=== PATIENT | male | born 1960 | race Caucasian/White ===

== ENCOUNTER 2016-08-02 14:15 | Emergency (ER) | payer OTHER ==
[~2016-08-02] VITALS: Ht 182.9 cm; Wt 165.0 kg
[2016-08-02 14:30] VITALS: BP 141/83; PULSE 101; RESP 15; O2SAT 98
[2016-08-02 15:36] LABS: BASOPHILS % (AUTO) 0.2 % (0-3); EOSINOPHILS % (AUTO) 0 % (0-5); MONOCYTES % (AUTO) 4.8 % (4-12); Mean Corpuscular Hemoglobin 30.7 pg (27.0-35.0); Mean Corpuscular Volume 88.4 fL (81-100); NEUTROPHILS % (AUTO) 80.3 % (40-74); Platelet Count 264 bil/L (150-400)
[2016-08-02 16:00] LABS: Magnesium 1.9 mg/dL (1.6-2.6)
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
[2016-08-02 16:47] LABS: APPEARANCE,URINE CLEAR (CLEAR,HAZY); COLOR,URINE DARK YELLOW (YELLOW); OCCULT BLOOD,URINE NEGATIVE (NEGATIVE); UROBILINOGEN,URINE NORMAL (NORMAL)
[2016-08-02] MEDS ORDERED: Ondansetron 2 mg/mL 2 mL Inj ONE (16:51)
[2016-08-02] MEDS ORDERED: Ondansetron 2 mg/mL 2 mL Inj IVPUSH ONE ×2 (17:05)
[2016-08-02] MEDS ORDERED: HYDROmorphone 0.5 mg/0.5 mL iSecure Syringe IVPUSH ONE ×2 (18:10→20:00)
[2016-08-02] MEDS ORDERED: Promethazine Inj 12.5 MG in Dextrose 5%-Pha MIX 50 ML IV ONE (18:10)
--- NOTE | 2016-08-02 18:13 | DRSVH ---
PROCEDURE: CT ABDOMEN AND PELVIS WITH CONTRAST (PNL-7102) INDICATIONS: 56 year-old male with left lower quadrant abdominal pain. TECHNIQUE: After the administration of intravenous contrast, 5 mm thick sections acquired from the diaphragm to the symphysis. 5 mm coronal and sagittal reformats were acquired. For radiation dose reduction, the following was used: automated exposure control, adjustment of mA and/or kV according to patient siz e. COMPARISON: None. FINDINGS: Image quality: Metallic streak artifact from lower lumbar spine fixation hardware obscures adjacent b harsha and soft tissue structures. ABDOMEN: Lung bases: Lung bases are clear. Heart size is normal. There is small retrocardiac hiatal hernia. Solid organs: Liver and spleen are normal in size and enhancement. Gallbladder wall thickness is no rmal. Biliary system is non dilated. Pancreas enhances normally. No adrenal nodules. Kidneys demo nstrate normal size and enhancement, without hydronephrosis. 3 mm inferior nonobstructing right renal stone is present. Peritoneum and bowel: Bowel loops demonstrate normal wall thickness and caliber. There is mild desc ending and sigmoid colon diverticulosis, without acute diverticulitis. The appendix appears normal. N o free fluid or air. Nodes and vessels: No retroperitoneal or mesenteric adenopathy by size criteria. Aorta and inferior vena cava are normal in size, with scant aortic atherosclerosis. Miscellaneous: No ventral hernias. PELVIS: Genitourinary: Bladder wall thickness is normal. Prostate gland is normal in size. Miscellaneous: Small fat-containing right inguinal hernia is present. No inguinal adenopathy by CT si ze criteria. Bones: No suspicious bony lesions. No vertebral body compression fractures. Patient is status post L4-L5 discectomy with interbody fusion and bilateral posterior fixation. There is scattered upper an d mid lumbar spine disc degeneration. IMPRESSION: 1. Mild descending and sigmoid colon diverticulosis, without acute diverticulitis. 2. 3 mm inferior nonobstructing right renal stone. 3. Small fat-containing right inguinal hernia. Dictated by: Omar Elaine M.D. on 08/02/2016 at 18:06 Approved by: Omar Elaine M.D. on 08/02/2016 at 18:12
[2016-08-02] MEDS ORDERED: HYDR-4003 PO (19:05)
[2016-08-02] MEDS ORDERED: PROM25TA14 PO (19:05)
[2016-08-02] MEDS ORDERED: Alum-Mag Hydrox-Simeth 30 mL Suspension PO ONE (19:45)
[2016-08-02 20:22] VITALS: BP 114/75; PULSE 72; RESP 16; O2SAT 100
== END 2016-08-02 20:15 | disposition home or self-care (01) ==
LOC: SED 14:15
DX: R10.84 Generalized abdominal pain (principal); E86.0 Dehydration; R63.1 Polydipsia; K92.1 Melena; R50.9 Fever, unspecified; R39.12 Poor urinary stream; Z98.890 Other specified postprocedural states
CPT/HCPCS: 36415; 51798; 74177; 80053; 81000; 82948; 83036; 83690; 83735; 85025; 96374; 96375; 96376; 99285; J1170; J2405; J2550; Q9967

== ENCOUNTER 2016-08-07 15:37 | Inpatient (IN) | payer OTHER ==
[~2016-08-07] VITALS: Ht 182.9 cm; Wt 75.0 kg
[2016-08-07] MEDS: Pantoprazole 4 mg/mL 10 mL Inj IVPUSH SCH ×2 (08:30→20:30)
[~2016-08-07 15:37] MED LIST: HYDR-4003 PO; PROM25TA14 PO
[2016-08-07 15:52] VITALS: BP 178/108; PULSE 93; RESP 16; O2SAT 100
[2016-08-07] MEDS ORDERED: 0.9% Sodium Chloride 1,000 ML IV ONE (16:02)
--- NOTE | 2016-08-07 16:03 | ED.REPORT ---
HPI-Abd Pain M 40 and Over Date of Service Aug 07, 2016 ED Provider: Gael Hawley MD Pt is a 56 y/o male presenting to the ED c/o severe squeezing epigastric abdominal pain onset prior to arrival. The patient was seen here approximately 5 days ago complaining of multiple episodes of emesis, diarrhea, and severe abdominal pain. An extensive workup during that visit including CT scan was performed, which was unremarkable. He was treated with Phenergan and Dilaudid with relief of symptoms. The patient went to a follow-up appointment today with an internal medicine doctor and was prescribed something (he doesn't remember what, he hasn't been able to fill it). He went home and his pain returned and he called EMS. He c/o associated nausea and vomiting. Pt denies fever, chills, SOB, CP. He has been experiencing this pain intermittently for 3 years. He has no formal diagnosis but it was thought that he may have an ulcer. He was referred to GI but hasn't had an appointment yet. Pt denies alcohol use, NSAID use, anticoagulation. Nursing Notes Stated Complaint: ABDOMINAL PAIN Chief Complaint: Male Abdominal Pain Nursing Notes Reviewed: Yes Allergies: Coded Allergies: No Known Allergies (Unverified , 08/02/16) Scheduled Pantoprazole DR (Pantoprazole DR) 40 Mg Tablet.dr 40 MG PO DAILY Sucralfate (Sucralfate) 1 Gm Tablet 1 GM PO QID Scheduled PRN Promethazine (Promethazine) 25 Mg Tablet 25 MG PO Q6H PRN PRN For Nausea General Time Seen by MD: 15:53 Chief Complaint Abdominal pain Hx Obtained From: Patient Arrived By: Walk-in Sudden in Onset?: Yes Onset Occurred: 1 - 4 hours ago Symptom Duration: Since onset Progression since Onset: Constant Location: : Abdomen lower Quality: Painful Radiation: : Does not radiate Severity: Current: Severe Severity: Maximum: Severe Similar Sx Previous: Yes Past Medical History Past Medical History denies Past Surgical History rotator cuff surgery (06/12/16) Reports: Back/neck surgery Smoking History Unknown if Ever Smoker Social History Other Social History: Local resident Ambulatory Status Independent Review of Systems Constitutional: Denies: Chills, Fever Respiratory: Denies: Non-productive cough, Shortness of breath Cardiovascular: Denies: Chest pain GI: Reports: Abdominal pain, Nausea, Vomiting Complete sys rev & neg: except as marked. Physical Exam Initial Vital Signs Vital Signs (First) Date Time Temp Pulse Resp B/P Pulse Ox O2 Delivery O2 Flow Rate FiO2 08/07/16 15:52 36.5 93 16 178/108 100 Room Air Initial VS: Reviewed, Vital signs abnormal Head / Eyes: Atraumatic, Normocephalic, PERRL ENT: Mucous membranes moist, Conjunctiva normal, No scleral icterus Neck: Supple, Full range of motion Extremities: Vascular intact, Neuro intact, No swelling, No tenderness Skin: Warm, Dry, No cyanosis Neurologic: Alert, Oriented, Nonfocal Psychiatric: Mood/affect normal, Behavior normal, Normal thought content General/Constitutional: Awake, Alert, Cooperative, Not toxic appearing Distress / Hydration: Positive: Distress mild Appearance / Presentation: Positive: Uncomfortable Respiratory / Chest: Atraumatic, Breath sounds NL, Breath sounds = bilat, No respiratory distress, No rales, No rhonchi, No wheezing, No retractions, No stridor, No chest tenderness, No chest wall deformity, No crepitus Cardiovascular: Heart rate NL, Regular rhythm, Heart sounds NL, No gallop, No murmurs, No rubs, Cap refill not delayed, Peripheral circulation NL Abdomen: Atraumatic, Soft, No guarding, No rebound, No distention Diffuse tenderness, most notable in epigastrium Back: Full range of motion, Painless range of motion, No CVA tenderness Interpretation & Diagnostics Lab Results Interpretation Result Diagram: 08/07/16 1615 08/07/16 1615 Test 08/07/16 16:15 White Blood Count 17.6th/mm3 (3.8-10.1) Red Blood Count 5.70mil/mm3 (4.40-5.80) Hemoglobin 17.6g/dL (13.8-17.2) Hematocrit 50.3% (41.0-50.0) Mean Corpuscular Volume 88.2fL (81-100) Mean Corpuscular Hemoglobin 30.9pg (27.0-35.0) Mean Corpuscular Hemoglobin Concent 35.0% (32.0-37.0) Red Cell Distribution Width 14.2% (12.3-15.4) Platelet Count 315bil/L (150-400) Neutrophils (%) (Auto) 76.7% (40-74) Lymphocytes (%) (Auto) 14.7% (14-46) Monocytes (%) (Auto) 7.1% (4-12) Eosinophils (%) (Auto) 0.6% (0-5) Basophils (%) (Auto) 0.4% (0-3) Prothrombin Time 10.9sec (8.1-12.5) Prothromb Time International Ratio 1.02ratio Sodium Level 139mEq/L (134-144) Potassium Level 3.5mEq/L (3.5-5.2) Chloride Level 102mEq/L (97-108) Carbon Dioxide Level 16mmol/L (18-29) Blood Urea Nitrogen 16mg/dL (6-24) Creatinine 0.90mg/dL (0.76-1.27) Estimat Glomerular Filtration Rate 93mL/min (>59) Glucose Level 139mg/dL (60-99) Calcium Level 9.5mg/dL (8.5-10.1) Magnesium Level 1.8mg/dL (1.6-2.6) Total Bilirubin 1.1mg/dL (0.0-1.2) Aspartate Amino Transf (AST/SGOT) 24U/L (0-50) Alanine Aminotransferase (ALT/SGPT) 22U/L (0-44) Alkaline Phosphatase 77U/L (25-150) Total Protein 7.4g/dL (6.4-8.4) Albumin 4.6g/dL (3.4-5.0) Lipase 30U/L (13-60) Hold [place] Top Tube Received (Received) CT Abd / Pelvis Interpretation IMPRESSION: 1. Mildly distended fluid-filled small bowel loops as described above, possibly indicating gastroenteritis. 2. Normal appendix. 3. Small hiatal hernia. 4. No change in nonobstructing right inferior pole renal calculus. Dictated by: Bennett Merrill M.D. on 08/07/2016 at 18:04 Approved by: Bennett Merrill M.D. on 08/07/2016 at 18:07 Study type: Abdominal CT IV contrast Interpretation / Wet Read by: Interpret - Radiologist Re-Eval/Medical Decision Med Decision/Clinical Course Patient is a 56-year-old male in generally good health who presents with worsening/severe epigastric abdominal pain now associated with hematemesis. Patient had multiple episodes of [id number] emesis here in emergency department which was Hemoccult positive. Upon arrival the patient had significant tenderness about the epigastrium though was otherwise afebrile with stable vital signs that he was quite hypertensive. Meds given: IV fluids, IV pantoprazole, 8 mg IV Zofran Labs notable as below: CBC: Leukocytosis of 17.6 up from prior of 13.4 on 08/02/16. HCT of 50.3 not significantly changed from prior. CMP: Unremarkable, LFTs and lipase within normal limits. Coag studies normal Despite treatment with a GI cocktail and IV pantoprazole the patient reported ongoing severe abdominal pain. For this reason he was treated with IV Dilaudid and I obtained a CT scan of his abdomen did not demonstrate any acute surgical process or evidence of perforated ulcer. See above. Patient discussed with gastroenterology who felt that he could either be admitted or followed closely on an outpatient basis for upper endoscopy. Given the severity of the patient's symptoms after discussing this with him he did not feel comfortable going home and requested that he be admitted for more urgent endoscopy. Patient is discussed with admitting hospitalist transferred in stable condition. He will be seen by gastroenterology tomorrow with plan for endoscopy. Time of Eval: 18:32 Re-Evaluation/Progress Note: Pt rechecked. Continuous to experience abdominal pain. He does not feel comfortable being discharged. Pt understands and agrees with plan for admission. All questions addressed. Consultation #1: Call Returned at: 18:32 Hospitality Aide: Agrees with eval, Agrees with plan Note: Consulted GI. Appropriate for him to f/u with GI and get scoped as outpatient. If he is too uncomfortable he could be admitted Consultation #2: Consulted With: Hospitalist Call Returned at: 18:48 Hospitality Aide: Will see patient, Agrees with eval, Agrees with plan, Accepts admit Counseled Regarding: Diagnosis, Lab results, Need for admission Discharge & Departure Primary Impression: PUD (peptic ulcer disease) Additional Impressions: Hematemesis Nausea presence: with nausea Qualified Code: K92.0 - Hematemesis Leukocytosis Leukocytosis type: unspecified Qualified Code: D72.829 - Elevated white blood cell count, unspecified Upper GI bleed Sudden onset of severe abdominal pain Disposition: ADMITTED TO HOSPITAL Vital Signs - All Vital Signs Date Time Temp Pulse Resp B/P Pulse Ox O2 Delivery O2 Flow Rate FiO2 08/07/16 17:28 36.8 18 180/95 98 Room Air 08/07/16 15:52 36.5 93 16 178/108 100 Room Air )( All Prior VS Reviewed: Yes Condition: Stable Referrals: Adelaide Zuluaga MD Crit Care Except Billable Proc Time Spent: 75-104 minutes Services Performed: Patient management by me, Time spent at bedside, Reviewing test results, Reviewing imaging, Discussing patient care, Documentation in record Scribe Attestation Portions of this note were transcribed by Mamadou Jones. I, Dr. Hawley personally performed the history, physical exam and medical decision-making; I reviewed and confirmed the accuracy of the information in the transcribed note. Signed by Felipe Londono, 08/07/16 - 1700 Gael Hawley MD Aug 07, 2016 16:03 MAMADOU JONES Aug 07, 2016 16:06
[2016-08-07] MEDS ORDERED: Pantoprazole 4 mg/mL 10 mL Inj IVPUSH ONE (16:05)
[2016-08-07] MEDS ORDERED: Ondansetron 2 mg/mL 2 mL Inj IVPUSH ONE (16:05)
[2016-08-07 16:31] LABS: BASOPHILS % (AUTO) 0.4 % (0-3); EOSINOPHILS % (AUTO) 0.6 % (0-5); MONOCYTES % (AUTO) 7.1 % (4-12); Mean Corpuscular Hemoglobin 30.9 pg (27.0-35.0); Mean Corpuscular Volume 88.2 fL (81-100); NEUTROPHILS % (AUTO) 76.7 % (40-74); Platelet Count 315 bil/L (150-400)
[2016-08-07 16:42] LABS: INR 1.02 ratio
[2016-08-07 16:47] LABS: Magnesium 1.8 mg/dL (1.6-2.6)
[2016-08-07 17:28] VITALS: BP 180/95; RESP 18; O2SAT 98
[2016-08-07] MEDS: HYDROmorphone 0.5 mg/0.5 mL iSecure Syringe IVPUSH PRN ×2 (17:51→18:53)
--- NOTE | 2016-08-07 18:08 | DRSVH ---
PROCEDURE: CT ABDOMEN AND PELVIS WITH CONTRAST (PNL-7102) INDICATIONS: severe abd pain, epigastric TECHNIQUE: After the administration of intravenous contrast, 5 mm thick sections acquired from the diaphragm to the symphysis. 5 mm coronal and sagittal reformats were acquired. For radiation dose reduction, the following was used: automated exposure control, adjustment of mA and/or kV according to patient yevgeniy diggs. COMPARISON: [facility], CT, CT ABD PELVIS W CON, 08/02/2016, 17:17. FINDINGS: Image quality: Excellent. ABDOMEN: Lung bases: Lung bases are clear. Heart size is normal. Solid organs: Liver and spleen are normal in size and enhancement. Gallbladder is within normal gabriel its. Biliary system is non dilated. Pancreas enhances normally. No adrenal nodules. Kidneys demon strate normal size and enhancement, without hydronephrosis. No change in 3 mm diameter nonobstructing calculus within the inferior pole right kidney. Peritoneum and bowel: No change in small hiatal hernia. There are a few mildly distended fluid-fille d small bowel loops within the low anterior abdomen and right lower quadrant. Bowel loops demonstrate otherwise normal wall thickness and caliber. No free fluid or air. Normal appendix. Diverticulosis of the descending and sigmoid colon. No evidence of acute diverticulitis. Nodes and vessels: No retroperitoneal or mesenteric adenopathy by size criteria. Aorta and inferior vena cava are normal in size. Miscellaneous: No ventral hernias. PELVIS: Genitourinary: Bladder wall thickness is normal. Miscellaneous: No inguinal hernias or adenopathy. Bones: No suspicious bony lesions. No vertebral body compression fractures. IMPRESSION: 1. Mildly distended fluid-filled small bowel loops as described above, possibly indicating gastroente ritis. 2. Normal appendix. 3. Small hiatal hernia. 4. No change in nonobstructing right inferior pole renal calculus. Dictated by: Bennett Merrill M.D. on 08/07/2016 at 18:04 Approved by: Bennett Merrill M.D. on 08/07/2016 at 18:07
[2016-08-07] MEDS ORDERED: Ondansetron 2 mg/mL 2 mL Inj IVPUSH PRN (18:35)
[2016-08-07] MEDS ORDERED: Alum-Mag Hydrox-Simeth 30 mL Suspension PO PRN (18:35)
[2016-08-07] MEDS ORDERED: PANT40TA3 PO (18:55)
[2016-08-07] MEDS ORDERED: SUCR1TAB PO (18:55)
--- NOTE | 2016-08-07 19:47 | PCM.HPMED ---
Subjective Date of Service Aug 07, 2016 Primary Provider: Admitting Physician: Primary Care Physician: Semaj Attending Physician: Chief Complaint: abdominal pain, , Nausea, vomiting History of Present Illness: This is a 56 y/o male with no significant past medical history presenting to the ED c/o lower abdominal has been going on for approximately 5 days. She is "abdominal stabbing like , associated with multiple episodes of emesis and diarrhea. Emesis is gastric content mostly, no dorian blood but some coffee ground . He was seen in the ER recently, and an extensive workup during that visit including CT scan was unremarkable. He was treated with Phenergan and Dilaudid with relief of symptoms. He was seen as outpatient with primary care doctor and was prescribed some medication , which the patient is unable to remember the name . He went home and his pain returned and he called EMS. Pt denies fever, chills, SOB, CP. Patient stated he has been having this pain off and on over the past 3 years. He was at some point to custom framing specialist but did not follow-up with the recommendation. Today in the emergency room patient is dehydrated, unable to tolerate oral intake. GI was consulted and recommended to keep patient nothing by mouth possible endoscopy tomorrow Review of Systems: a comprehensive review x 10 points is negative except for abdominal pain nausea and vomiting as described above in HPI Allergies Coded Allergies: No Known Allergies (Unverified , 08/02/16) Home Medications Hydrocodone-Acetaminophen 5-325 mg (Hydrocodone-Acetaminophen 5-325 mg) 1 Each Tablet 1-2 TABLET PO Q4-6H PRN PRN For Pain Promethazine (Promethazine) 25 Mg Tablet 25 MG PO Q6H PRN PRN For Nausea PMH Cervical radiculopathy Surgical History Back/neck surgery Family History Family history reviewed and is noncontributory to the present illness Social History Hx Alcohol Use: Yes ("social") Hx Substance Use: No (denies) Smoking Status: Unknown if Ever Smoker Exam Vital Signs Vital Sign - Last Date Time Temp Pulse Resp B/P Pulse Ox O2 Delivery O2 Flow Rate FiO2 08/07/16 17:28 36.8 18 180/95 98 Room Air 08/07/16 15:52 93 Exam General: Well-nourished male in bed comfortably. Very anxious. NAD HHENT : GEOFFREY. Normocephalic, sclerae anicteric. Mouth: No thrush, moist oral mucosa Neck: : Trachea is midline, no cervical lymphadenopathy, no JVD. Chest: Normal respiratory effort: No chest wall tenderness, no deformity Lungs : Clear bilaterally, although, no wheezing. Heart: S1S2, regular rate and rhythm, no gallop, no murmur Abdomen: Tender at epigastric area on deep palpation. No palpable mass, non distended extremities : No cyanosis, no edema, no calf tenderness Neuro : Grossly intact. Pych : Anxious Skin : no rash, no ulcers Lab and Diagnostics Result Diagram: 08/07/16 1615 08/07/16 1615 X-Rays, CTs and MRIs Abdominal CT scan reviewed: 1. Mildly distended fluid-filled small bowel loops as described above, possibly indicating gastroenteritis. 2. Normal appendix. 3. Small hiatal hernia. 4. No change in nonobstructing right inferior pole renal calculus. Assessment & Plan 1. Acute GI bleed 2. Dehydration 3. Abdominal pain NPO. Start PPI : Pantoprazole 40 gm IV BID IV Hydration : NS @ 100 ml/hr CBC in am . GI for posible Endoscopy in am . SCD for DVT prophylaxis . Morphine sulfate 2 mg IV Q4H PRN for pain Pain Evaluation: Adequate Pain Control GI Prophylaxis: Proton Pump Inhibitor VTE Prophylaxis: SCDs Resuscitation Status: CPR: Attempt Resuscitation Time spent 55 minutes Fabien Doran MD Aug 07, 2016 19:47
[2016-08-07 20:10] VITALS: BP 172/84; PULSE 82; RESP 16; O2SAT 98
--- NOTE | 2016-08-07 20:15 | NUR ---
Admit Patient arrived from ED at 2000. Patient A&Ox3. Up independent. Vitals stable. IV in left forearm saline locked. Patient complains of abdominal pain 01/09.
[2016-08-07 20:32] VITALS: BP 187/101; PULSE 83; RESP 20; O2SAT 98
[2016-08-07] MEDS ORDERED: hydrALAZINE 20 mg/mL Inj IV PRN (22:05)
[2016-08-07] MEDS ORDERED: levoFLOXacin Inj 750 MG in IV Premix 1 EACH IV SCH (22:10)
[2016-08-07] MEDS: 0.9% Sodium Chloride 1,000 ML IV SCH (23:01)
[2016-08-07 23:58] VITALS: BP 165/87; PULSE 85; RESP 18; O2SAT 96
[2016-08-08] VITALS (7 sets, daily range): BP systolic 93–153; BP diastolic 63–92; PULSE 61–85; RESP 14–18; O2SAT 96–100
[2016-08-08] MEDS: Pantoprazole 4 mg/mL 10 mL Inj IVPUSH SCH ×2 (00:26→08:09)
[2016-08-08] MEDS: 0.9% Sodium Chloride 1,000 ML IV SCH ×3 (05:31→15:31)
[2016-08-08 06:12] LABS: BASOPHILS % (AUTO) 0.4 % (0-3); EOSINOPHILS % (AUTO) 0.8 % (0-5); MONOCYTES % (AUTO) 9.7 % (4-12); Mean Corpuscular Hemoglobin 31.1 pg (27.0-35.0); Mean Corpuscular Volume 89.8 fL (81-100); NEUTROPHILS % (AUTO) 64.9 % (40-74); Platelet Count 246 bil/L (150-400)
--- NOTE | 2016-08-08 07:34 | NUR ---
NPO Patient NPO since midnight. Morphine 2mg for pain 01/09. Patient up independent to bathroom.
--- NOTE | 2016-08-08 08:04 | NUR ---
NUTRITION ASSESSMENT: ASSESS: 56YO M admit with abdominal pain, n/v, reports abdominal pain x 3 yrs, notes indicate possible gastroenteritis, GI bleed, dehydration, pt to possibly undergo endoscopy. PMHX: Reviewed. DIET: NPO LABS: Alb 3.9 MEDS: Reviewed GI: No BM WEIGHT: 75.0kg BMI: 22.4 EST.NEEDS: 5748-5523 kcal, 75-90g pro (25-30kcal/kg;1.0-1.2g/kg pro) NUTRITION DIAGNOSIS: (1) Altered GI tract function related to alteration in GI tract function as evidenced by N/V, persistent abdominal pain and possible gastroenteritis. INTERVENTION: (1) Monitor for diet advancement, adding supplements and modifying diet as appropriate. MONITOR/EVALUATE: Diet advancement, GI status. F/U per moderate risk.
[2016-08-08] MEDS ORDERED: fentaNYL-PF 50 mCg/mL 2 mL Inj IVPUSH PRN (10:05)
--- NOTE | 2016-08-08 10:15 | NUR ---
TO [facility] Report given to [facility]. NPO since admit. Patient was transported to [facility] via a wheelchair.
--- NOTE | 2016-08-08 10:29 | PCM.CHPMED ---
Subjective Date of Service: Aug 08, 2016 Provider requesting consult: Fabien Doran MD Primary Physician: Admitting Physician: Fabien Doran MD Primary Care Physician: Nopeloise Attending Physician: Fabien Doran MD Chief Complaint: Chief Complaint: REASON FOR GI CONSULT: Abdominal pain, hematemesis History of Present Illness: GASTROENTEROLOGY CONSULTATION NOTE Mr. Mc is a 56 year old gentleman with history of multiple orthopaedic repairs and GERD, that presented to [facility] with acute on chronic abdominal pain, hematemesis, and diarrhea. He was admitted for evaluation and treatment of possible UGIB and acute on chronic abdominal pain. GI was consulted to assist in this evaluation and treatment plan. He states that he has been experiencing sharp, stabbing abdominal pain intermittently over the recent three years, and admits to narcotic use for pain , but attributes the medication to his orthopaedic processes rather than his abdomen. The abdominal pain became constant and unbearable, resulting to inability to tolerate any po intake and lead to this admission. He denies any history of GI issues, has never had EGD or colonoscopy, and is not aware of any family history of GI issues, as he is estranged from his family. He states his first episode of noted blood in his emesis was day of admission. Also noted some bright red blood within his stools. Denies any known history of hemorrhoids. Denies tobacco use over recent 5 years, denies chronic and/or daily alcohol use, and denies illicit/legal substance abuse. Admits to history of GERD, and stopped taking Prilosec approx one year ago. Admits to naproxen use , but has not been utilizing as medication over recent year. Denies any sick contacts. States he has been recommended to pursue colonoscopy in the past, but has not done so. Denies any known allergies to food, medications, egg, shellfish , iodine. He works as a document management technician, and admits to multiple exposures of asbestos and other unknown chemicals and irritants. Was seen as outpatient day of admission by Dr. Chavez for [facility] for recent ED visit of similar symptoms. At that visit, concern of carcinoid vs severe gastritis; carafate and protonix was Rx'd, in addition to GI referral for EGD and studies included 5-HIAA, 24h urine, H. pylori IgG, and continued use of antiemetics and pain control medications. Patient does not have a PCP. CT A/P w/con 08/07 revealed mildly distended fluid filled small bowel loops, suspicious for gastroenteritis, in addition to a small hiatal hernia. GI consulted to further evaluate etiology for abdominal pain and reported coffee -ground emesis. Review of Systems: Complete ROS obtain; pertinent positives and negatives as noted in HPI PMH Past Medical History GERD Reports: Elevated blood glucose readings Denies: Heart disease, liver disease, GI issues, autoimmune disorders Surgical History Reports: multiple orthopaedic interventions, including bilateral shoulder, left elbow, ankle, low back Home Medications Obtained from Mehrdad Davis [id number] 1960 08/07/2016 11:00 AM 06/05 naproxen take 1 tablet by oral route 2 times every day with food 08/07/2016 Gans 5 mg-325 mg tablet take 1 tablet by oral route every 6 to 8 hours as needed for pain 08/07/2016 pantoprazole 40 mg tablet,delayed release take 1 tablet by oral route every day 08/07/2016 promethazine 25 mg tablet take 1 tablet by oral route every 4 - 6 hours as needed 08/07/2016 sucralfate 1 gram tablet take 1 tablet by oral route 4 times every day on an empty stomach 1 hour before meals and at bedtime Allergies: Coded Allergies: No Known Drug Allergies (Verified Allergy, Unknown, 08/08/16) Family History Family History Unknown; patient is estranged from parents and half-sister. No known ailments or GI issues. Believes father may or may not have had colon cancer Social History Occupation: A/C technicianHx Alcohol Use: Yes ("social")Hx Substance Use: No (denies)Hx Tobacco Use: Yes Smoking Status: Former Smoker (Quit 5 y ago) Exam Vital Signs Vital Sign - Last Date Time Temp Pulse Resp B/P Pulse Ox O2 Delivery O2 Flow Rate FiO2 08/08/16 07:53 36.7 75 16 131/85 99 Room Air Intake and Output 08/07/16 08/07/16 08/08/16 Cumulative From/Thru 15:00 23:00 07:00 08/07/16 15:52 - 08/08/16 06:36 Intake Total 1000 ml 800 ml 1800 ml Output Total 700 ml 700 ml Balance 1000 ml 100 ml 1100 ml Intake Oral 800 ml 800 ml IV Total 1000 ml 1000 ml Output Urine Total 700 ml 700 ml # Bowel Movements 0 0 General: Alert, Oriented X3, Cooperative, No Acute Distress Head: Normal Eyes: Scleral Anicteric Nose: Mucous Membr Moist/[place] Mouth: Mucous Membr Moist/[place] Chest & Lungs: Clear to auscultation & percussion, No adventitious breath sounds Cardiovascular: Regular Rate/Rhythm, No Murmurs/Rubs/Gall[place] Pulses: Radial (Equal and bilateral) Abdomen: Tender (Diffuse; notable epigastric, LUQ), Non-distended Musculoskeletal: Normal Range of Motion Extremities: No cyanosis/clubbing/edma bilat Neurological: Cranial Nerves 2-12 Intact, Normal Speech (without slur) Lab and Diagnostics Result Diagram: 08/08/1652408/08/16524 Assessment & Plan Assessment GASTROENTEROLOGY CONSULTATION NOTE Mr. Mc is a 56 year old gentleman with history of multiple orthopaedic repairs and GERD, that presented to [facility] with acute on chronic abdominal pain, hematemesis, and diarrhea. He was admitted for evaluation and treatment of possible UGIB and acute on chronic abdominal pain. GI was consulted to assist in this evaluation and treatment plan. No further events of hematemesis or hematochezia/melena noted thus far this hospitalization. CT A/P w/con 08/07 revealed mildly distended fluid filled small bowel loops, suspicious for gastroenteritis, in addition to a small hiatal hernia. Assessments - Acute on chronic abdominal pain - Evidence possible gastroenteritis on CT - History of GERD Plan - NPO - EGD 08/08 - Obtain stool PCR for evaluation - Will need colonoscopy, routine and/or diagnostic; can be completed outpatient - Depending results of EGD, stool PCR for identifying etiologies of pain. Will schedule accordingly if need to complete in-house arises Thank you for this consult, we will happily follow along with you. Please do not hesitate to contact us with any questions or concerns. Total time: 45 minutes Problems: Pain Evaluation: Adequate Pain Control GI Prophylaxis: Proton Pump Inhibitor VTE Prophylaxis: SCDs VTE Mechanical Devices: Intermittant Pneumatic CD Resuscitation Status: CPR: Attempt Resuscitation Attending Statement Patient seen and examined agree with resident physician note 56 y/o kiesha with acute on chronic abdominal pain Denies NSAID, ETOH abuse Has tried PPI off and on without much benefit. Imaging of abdomen and labs normal. EGd to evalute for mucosal disease. Cari Hardin DO Aug 08, 2016 10:29 Adelaide Zuluaga MD Aug 08, 2016 23:11
--- NOTE | 2016-08-08 11:53 | ENDO ---
[address] [address] ENDOSCOPY PROCEDURE PATIENT: ELVIA BAZZI : 1960 MR#: [id number] ADMIT: 08/07/2016 JOB ID: [id number] DATE OF SERVICE: 08/08/2016 PROCEDURE PERFORMED: Esophagogastroduodenoscopy. INDICATION: Abdominal pain. ASA CLASSIFICATION: The patient's ASA classification is II. MALLAMPATI SCORE: Mallampati score is 2. MEDICATIONS: Please see nurses's notes for details regarding sedation. INSTRUMENT USED: [id number]. PROCEDURE DETAILS: After informed consent was obtained, the patient was brought into the GI suite, where he was placed on oxygen via nasal cannula and monitored with continuous pulse oximeter, telemetry, and blood pressure monitoring. A time-out was performed. He was placed in the left lateral decubitus position, and a bite block was placed. Medications were then administered for sedation. A standard EGD scope was inserted through the bite block and advanced under direct visualization to the second portion of the duodenum without difficulty. FINDINGS: 1. In the in the distal portion of the duodenal bulb there was a 3-4 mm, clean-based ulcer. 2. Multiple random biopsies were obtained throughout the duodenum. 3. Normal appearing pylorus. In the antrum and body of the stomach there were multiple punctate erosions. 4. Retroflexed views in the gastric body revealed normal appearing cardia and fundus, and a hiatal hernia was appreciated. 5. Multiple random biopsies were obtained throughout the antrum and body of the stomach, as well as a biopsy was obtained for rapid H. pylori testing. 6. The diaphragmatic hiatus was at approximately 42 cm, and the gastroesophageal junction was at approximately 38 cm. 7. From 38 cm extending to 34 cm proximally, the mucosa was ulcerated and friable. Proximal to 34 cm up to the upper esophageal sphincter, mucosa appeared normal. IMPRESSION: 1. Clean-based duodenal bulb ulcer. 2. Multiple gastric erosions. 3. Small hiatal hernia. 4. Morris class C ulcerative esophagitis. RECOMMENDATIONS: 1. PPI daily. 2. Reflux precautions. 3. Avoid NSAIDs. 4. Await biopsy results. COMPLICATIONS: None. ESTIMATED BLOOD LOSS: Less than 5 mL.
[2016-08-08] MEDS ORDERED: LORazepam 0.5 mg Tablet PO ONE (13:00)
[2016-08-08] MEDS ORDERED: SUCR1TAB PO (13:13)
[2016-08-08] MEDS ORDERED: PANT40TA3 PO (13:14)
--- NOTE | 2016-08-08 13:28 | PCM.DIMED ---
Discharge Instructions Date of Service Aug 08, 2016 Dates of Hospitalization Aug 07, 2016 at 19:49 Discharge Diagnosis Discharge Diagnosis minor episode of upper GI bleeding due to petic ulcer disease Medication Instructions Please take [id number] daily for 30days, you can increase it to twice a day if you still have pain in your stomach. Diet Other (please follow diet instruction given) Activity No restrictions Patient Instructions You were hospitalized with stomach pain, found to have ulcer in you duodenum and erosions in stomach on endoscopy. Please avoid most of over the counter pain medicine to protect your stomach, such as motrin, alleve, ibuprofen. Please follow up with your new doctor to follow up the result of biopsy. Follow-up plan Please follow up with your new primary doctor in [facility]. This was arranged prior to discharge. Follow-up Provider: [facility] Follow-up with PCP in: 1 week Penny Gonzales MD Aug 08, 2016 13:25
--- NOTE | 2016-08-08 13:28 | NUR ---
Social Work- Brief Note Data: EMR reviewed. Pt is a 56 year old male admitted 08/07/16 for peptic ulcer disease per H&P. Pt's insurance is [employer]. Pt has no PCP doctor at this time. SW met with pt at bedside regarding discharge planning, SW role explained. Pt resides alone in [place] where he remains independent with his ADLs. Pt uses no DME and has no HH or SNF history. Pt requests follow up appointment with PCP doctor. UR Specialist to schedule PCP appointment for pt. Pt to discharge home with SO to transport. No anticipated discharge needs. SW will continue to follow. Assessment: Pt [place] independent [place] base. Plan: SW to follow up regarding PCP appointment. Pt to discharge home with SO to transport. No anticipated discharge needs. SW will continue to follow. ADAM Cruz
--- NOTE | 2016-08-08 13:30 | NUR ---
Arranged follow up appointment for July check in at 840AM for 850AM appointment with Updated MANAGER OF BUSINESS
--- NOTE | 2016-08-08 13:30 | NUR ---
FROM ENDO Patient received from endo. Patient rated his pain as 8/10 over his abdomen. Patient was started on clear liquids in endo. Tolerating it well. Denies nausea. No emesis noted. Denies SOB. Dr. Gonzales made aware RE: Patient requesting some pain and anxiety meds. Oriented to room and call light. Please refer to post-op grid for assessments. Will continue to monitor.
--- NOTE | 2016-08-08 13:36 | NUR ---
Social Work- Readiness for Discharge Data: EMR reviewed. Pt is a 56 year old male admitted 08/07/16 for peptic ulcer disease per H&P. SW informed pt of PCP appointment August 13 at 8:50 am at the [facility] with Dr. Wyatt. Pt to discharge home with SO to transport. No anticipated discharge needs. SW will continue to follow. Assessment: Pt [place] is independent [place] base. Plan: SW informed pt of PCP appointment 08/13 at 8:40 am. Pt to discharge home with SO to transport. No anticipated discharge needs. SW will continue to follow. Stacy Kelley, ROD HANGER
--- NOTE | 2016-08-08 14:39 | NUR ---
Social Work- Discharge Data: EMR reviewed. Pt is a 56 year old male admitted 08/07/16 for peptic ulcer disease per H&P. Pt to discharge today. Pt has PCP appointment August 13 at 8:50 am at the [facility] with Dr. Wyatt. Pt updated and agreeable to plan. Pt to discharge home with SO to transport. No discharge needs. Assessment: Pt who is independent [place] base. Plan: Pt has PCP appointment 08/13 at 8:40 am. Pt to discharge home with SO to transport. No discharge needs. Stacy Kelley, ALARM SERVICE TECHNICIAN
[2016-08-08 15:12] LABS: BASOPHILS % (AUTO) 0.5 % (0-3); EOSINOPHILS % (AUTO) 1.2 % (0-5); MONOCYTES % (AUTO) 9.1 % (4-12); Mean Corpuscular Hemoglobin 31.3 pg (27.0-35.0); Mean Corpuscular Volume 91.5 fL (81-100); NEUTROPHILS % (AUTO) 62.1 % (40-74); Platelet Count 241 bil/L (150-400)
[2016-08-08] MEDS ORDERED: HYDROcodone-APAP 5-325 mg Tablet PO ONE (16:20)
--- NOTE | 2016-08-08 17:35 | NUR ---
DISCHARGE Hydrocodone 1 tab PO has been helpful for pain control. Via FELDT scale patients pain level is 0/10 after his pain medication. Tolerating clear liquids well. Diet instructions was given to the patient and he verbalized understanding. Denies nausea. No emesis noted. Denies SOB. Patient has been able to ambulate independently in the room. Gait is steady. Tolerating activity well. IV saline lock d/cd. Discharge instructions, care notes and prescription was given to the patient and he verbalized understanding. Discharged to home with his friend and all his personal belongings. (Copy of D/C is in the chart).
--- NOTE | 2016-08-09 12:19 | PCM.DC.MED ---
Discharge Summary Date of Service Aug 08, 2016 Dates of Hospitalization Date of Hospital Admission Aug 07, 2016 at 19:49 Date of Discharge: Aug 08, 2016 Providers: Admitting Physician: Fabien Doran MD Primary Care Physician: Nopcp Attending Physician: Fabien Doran MD Diagnosis at Time of Discharge Diagnosis at Time of Discharge minor episode of upper GI bleeding due to petic ulcer disease Consultations Gastroenterology Procedures XRay, CTs & MRIs PROCEDURE: CT ABDOMEN AND PELVIS WITH CONTRAST ([id number]) INDICATIONS: severe abd pain, epigastric TECHNIQUE: After the administration of intravenous contrast, 5 mm thick sections acquired from the diaphragm to the symphysis. 5 mm coronal and sagittal reformats were acquired. For radiation dose reduction, the following was used: automated exposure control, adjustment of mA and/or kV according to patient size. COMPARISON: [facility], CT, CT ABD PELVIS W CON, 08/02/2016, 17:17. FINDINGS: Image quality: Excellent. ABDOMEN: Lung bases: Lung bases are clear. Heart size is normal. Solid organs: Liver and spleen are normal in size and enhancement. Gallbladder is within normal limits. Biliary system is non dilated. Pancreas enhances normally. No adrenal nodules. Kidneys demonstrate normal size and enhancement, without hydronephrosis. No change in 3 mm diameter nonobstructing calculus within the inferior pole right kidney. Peritoneum and bowel: No change in small hiatal hernia. There are a few mildly distended fluid-filled small bowel loops within the low anterior abdomen and right lower quadrant. Bowel loops demonstrate otherwise normal wall thickness and caliber. No free fluid or air. Normal appendix. Diverticulosis of the descending and sigmoid colon. No evidence of acute diverticulitis. Nodes and vessels: No retroperitoneal or mesenteric adenopathy by size criteria. Aorta and inferior vena cava are normal in size. Miscellaneous: No ventral hernias. PELVIS: Genitourinary: Bladder wall thickness is normal. Miscellaneous: No inguinal hernias or adenopathy. Bones: No suspicious bony lesions. No vertebral body compression fractures. IMPRESSION: 1. Mildly distended fluid-filled small bowel loops as described above, possibly indicating gastroenteritis. 2. Normal appendix. 3. Small hiatal hernia. 4. No change in nonobstructing right inferior pole renal calculus. Dictated by: Bennett Merrill M.D. on 08/07/2016 at 18:04 Approved by: Bennett Merrill M.D. on 08/07/2016 at 18:07 Other Diagnostics ENDOSCOPY PROCEDURE PATIENT: ELVIA BAZZI : 1960 MR#: [id number] ADMIT: 08/07/2016 JOB ID: [id number] DATE OF SERVICE: 08/08/2016 PROCEDURE PERFORMED: Esophagogastroduodenoscopy. INDICATION: Abdominal pain. ASA CLASSIFICATION: The patient's ASA classification is II. MALLAMPATI SCORE: Mallampati score is 2. MEDICATIONS: Please see nurses's notes for details regarding sedation. INSTRUMENT USED: [id number]. PROCEDURE DETAILS: After informed consent was obtained, the patient was brought into the GI suite, where he was placed on oxygen via nasal cannula and monitored with continuous pulse oximeter, telemetry, and blood pressure monitoring. A time-out was performed. He was placed in the left lateral decubitus position, and a bite block was placed. Medications were then administered for sedation. A standard EGD scope was inserted through the bite block and advanced under direct visualization to the second portion of the duodenum without difficulty. FINDINGS: 1. In the in the distal portion of the duodenal bulb there was a 3-4 mm, clean-based ulcer. 2. Multiple random biopsies were obtained throughout the duodenum. 3. Normal appearing pylorus. In the antrum and body of the stomach there were multiple punctate erosions. 4. Retroflexed views in the gastric body revealed normal appearing cardia and fundus, and a hiatal hernia was appreciated. 5. Multiple random biopsies were obtained throughout the antrum and body of the stomach, as well as a biopsy was obtained for rapid H. pylori testing. 6. The diaphragmatic hiatus was at approximately 42 cm, and the gastroesophageal junction was at approximately 38 cm. 7. From 38 cm extending to 34 cm proximally, the mucosa was ulcerated and friable. Proximal to 34 cm up to the upper esophageal sphincter, mucosa appeared normal. IMPRESSION: 1. Clean-based duodenal bulb ulcer. 2. Multiple gastric erosions. 3. Small hiatal hernia. 4. Lewis class C ulcerative esophagitis. RECOMMENDATIONS: 1. PPI daily. 2. Reflux precautions. 3. Avoid NSAIDs. 4. Await biopsy results. COMPLICATIONS: None. ESTIMATED BLOOD LOSS: Less than 5 mL. Adelaide Zuluaga MD 08/08/16 1128 Brief History HPI obtained by on 08/07 This is a 56 y/o male with no significant past medical history presenting to the ED c/o lower abdominal has been going on for approximately 5 days. She is "abdominal stabbing like , associated with multiple episodes of emesis and diarrhea. Emesis is gastric content mostly, no dorian blood but some coffee ground . He was seen in the ER recently, and an extensive workup during that visit including CT scan was unremarkable. He was treated with Phenergan and Dilaudid with relief of symptoms. He was seen as outpatient with primary care doctor and was prescribed some medication , which the patient is unable to remember the name . He went home and his pain returned and he called EMS. Pt denies fever, chills, SOB, CP. Patient stated he has been having this pain off and on over the past 3 years. He was at some point to nutrition therapist but did not follow-up with the recommendation. Today in the emergency room patient is dehydrated, unable to tolerate oral intake. GI was consulted and recommended to keep patient nothing by mouth possible endoscopy tomorrow Hospital Course 1.Minor episode of upper GI bleeding due to petic ulcer disease, pt was started on PPI, IVF, h/h remained stable, EGD by on 08/08 showed these findings. IMPRESSION: 1. Clean-based duodenal bulb ulcer. 2. Multiple gastric erosions. 3. Small hiatal hernia. 4. Lewis class C ulcerative esophagitis. Repeat CBC after EGD showed stable h/h, pt didn't have any further episode. patient was hemodynamically stable, tolerating liquid diet with minimal epigastric pain, deemed safe for d/c. Patient will be seen by PCP for biopsy result, discussed possibility of H.Pylori irradication if it's positive. Patient was given daily PPI per GI recommendation. Diet education materials were also given. Exam Vital Signs (Last) Date Time Temp Pulse Resp B/P Pulse Ox O2 Delivery O2 Flow Rate FiO2 08/08/16 12:23 36.6 74 18 153/92 100 Room Air Exam NAD, comfortably laying down on the bed no JVD, MMM, no LAD RRR, nl s1, s2 no mrg CTAB, no w,c S,ND,NT,normoactive BS+ warm, no edema, pulses 2/2 Test 08/07/16 16:15 08/08/16 05:25 08/08/16 06:00 08/08/16 08:35 Prothrombin Time 10.9sec (8.1-12.5) Prothromb Time International Ratio 1.02ratio Magnesium Level 1.8mg/dL (1.6-2.6) Lipase 30U/L (13-60) Hold [place] Top Tube Received (Received) Sodium Level 140mEq/L (134-144) Potassium Level 3.9mEq/L (3.5-5.2) Chloride Level 107mEq/L (97-108) Carbon Dioxide Level 20mmol/L (18-29) Blood Urea Nitrogen 13mg/dL (6-24) Creatinine 0.74mg/dL (0.76-1.27) Estimat Glomerular Filtration Rate 117mL/min (>59) Glucose Level 99mg/dL (60-99) Calcium Level 8.6mg/dL (8.5-10.1) Total Bilirubin 0.9mg/dL (0.0-1.2) Aspartate Amino Transf (AST/SGOT) 15U/L (0-50) Alanine Aminotransferase (ALT/SGPT) 14U/L (0-44) Alkaline Phosphatase 61U/L (25-150) Total Protein 5.5g/dL (6.4-8.4) Albumin 3.9g/dL (3.4-5.0) Hold Urine Received (Received) Procalcitonin 0.06ng/mL (0.00-0.08) Test 08/08/16 14:45 White Blood Count 9.8th/mm3 (3.8-10.1) Red Blood Count 4.60mil/mm3 (4.40-5.80) Hemoglobin 14.4g/dL (13.8-17.2) Hematocrit 42.1% (41.0-50.0) Mean Corpuscular Volume 91.5fL (81-100) Mean Corpuscular Hemoglobin 31.3pg (27.0-35.0) Mean Corpuscular Hemoglobin Concent 34.2% (32.0-37.0) Red Cell Distribution Width 14.2% (12.3-15.4) Platelet Count 241bil/L (150-400) Neutrophils (%) (Auto) 62.1% (40-74) Lymphocytes (%) (Auto) 26.9% (14-46) Monocytes (%) (Auto) 9.1% (4-12) Eosinophils (%) (Auto) 1.2% (0-5) Basophils (%) (Auto) 0.5% (0-3) Discharge Medications Discharge Medications Pantoprazole DR (Pantoprazole DR) 40 Mg Tablet.dr 40 MG PO DAILY Prescribed by: PENNY CAZARES MD As needed Promethazine (Promethazine) 25 Mg Tablet 25 MG PO Q6H PRN PRN For Nausea Prescribed by: HANNA WALTERS MD Sucralfate (Sucralfate) 1 Gm Tablet 1 GM PO QID PRN PRN For Epigastric Distress Prescribed by: PENNY CAZARES MD Additional med instructions Please take [id number] daily for 30days, you can increase it to twice a day if you still have pain in your stomach. Followup Plan Disposition: Home Follow-up plan Please follow up with your new primary doctor in Residency clinic. This was arranged prior to discharge. Discharge Diet: Other (please follow diet instruction given) Discharge Activity: No restrictions Patient Instructions You were hospitalized with stomach pain, found to have ulcer in you duodenum and erosions in stomach on endoscopy. Please avoid most of over the counter pain medicine to protect your stomach, such as motrin, alleve, ibuprofen. Please follow up with your new doctor to follow up the result of biopsy. Follow-up Provider: [facility] Follow-up with PCP in: 1 week Time spent 65 minutes Penny Cazares MD Aug 09, 2016 12:19
--- NOTE | 2016-08-09 14:24 | PATH ---
SURGICAL PATHOLOGY Attending Physician:Marck Mcginnis CASE STATUS: Signed Out PATIENT NAME: ELVIA BAZZI PID: [id number] : 1960 DATE COLLECTED:08/08/2016 20:22 SPECIMEN: 1: Duodenum, Biopsy 2: Gastric, Biopsy CLINICAL HISTORY: ABDOMINAL PAIN 1). DUODENUM BIOPSY 2). GASTRIC BIOPSY FINAL DIAGNOSIS: 1.DUODENUM BIOPSY: FRAGMENTS OF NORMAL-APPEARING SMALL BOWEL MUCOSA. Normal delicate mucosal villi present. Negative for significant inflammation, dysplasia and malignancy. 2.GASTRIC BIOPSY: MILD CHRONIC GASTRITIS INVOLVING ANTRAL AND FUNDIC MUCOSA. Negative for evidence of Helicobacter. Negative for intestinal metaplasia. Negative for dysplasia and malignancy. ICD10 CODE K29.70 GROSS DESCRIPTION: The specimen is received in two formalin filled containers labeled with the patient's name. 1). The specimen is sublabeled "duodenum" and consists of 2 portions of tissue which aggregate to 0.3 x 0.3 x 0.3 CM. The specimen is entirely submitted in cassette 1A. 2). The specimen is sublabeled "gastric" and consists of 2 portions of tissue which aggregate to 0.4 x 0.3 x 0.3 CM. The specimen is entirely submitted in cassette 2A. 08/08/2016 [facility] MICRO DESCRIPTION: See diagnosis. ICD-9 CODES: CPT CODES: 1: 78677 2: 58389 Electronically Signed Out Kashif Mc MD [facility] [address], [place] [address] Technical component performed at [facility], [address] [place] [address] Ave[address], [place], [address]
== END 2016-08-08 17:30 | disposition home or self-care (01) | DRG 378 ==
LOC: SED 15:37 → EDBD 15:37 → OBSVTOIN 19:49 → OSC 19:49
PROVIDERS: ADMIT Internal Medicine; ATTEND Internal Medicine
PROC: 0DB68ZX Excision of Stomach, Via Natural or Artificial Opening Endoscopic, Diagnostic (ICD-10-PCS; 2016-08-08)
PROC: 0DB98ZX Excision of Duodenum, Via Natural or Artificial Opening Endoscopic, Diagnostic (ICD-10-PCS; principal; 2016-08-08 10:30)
DX: K27.4 Chronic or unspecified peptic ulcer, site unspecified, with hemorrhage (principal); K22.10 Ulcer of esophagus without bleeding; E86.0 Dehydration; K44.9 Diaphragmatic hernia without obstruction or gangrene; Z87.891 Personal history of nicotine dependence